=== PATIENT | male | born 1960 | race Hispanic/Latino ===

== ENCOUNTER 2020-11-12 13:54 | Outpatient (CLI) | payer OTHER ==
--- NOTE | 2020-11-12 15:33 | XRay Report ---
Lumbar spine series INDICATION: Back pain FINDINGS: Sacrum and sacroiliac joints appear normal. Lumbar spinal alignment appears normal. Mild en dplate changes at several levels. No subluxation. IMPRESSION: No acute findings. Right knee 4 views INDICATION: Pain FINDINGS: Alignment appears normal. There is patellofemoral degenerative change with joint space narr owing. No acute fracture. Signer Name: Rosalino Raymond MD Signed: 11/12/2020 3:29 PM Workstation Name: [id number]
== END 2020-11-12 13:55 | disposition home or self-care (01) ==
LOC: XRAY 13:54
PROVIDERS: ATTEND Internal Medicine
DX: M17.0 Bilateral primary osteoarthritis of knee (principal); M47.817 Spondylosis without myelopathy or radiculopathy, lumbosacral region
CPT/HCPCS: 72110